=== PATIENT | female | born 1990 | race Caucasian/White ===

== ENCOUNTER → 2018-09-27 | Outpatient (CLI) | payer MEDICAID ==
--- NOTE | 2018-09-27 16:28 | Diagnostic Imaging Report ---
INDICATION: 18 weeks . TECHNIQUE: Multiple real-time grayscale images were obtained over the gravid uterus. COMPARISON: None. FINDINGS: Biometrical measurements are as follows: Biparietal 5.13 cm, age 21 weeks 4 days. Head circumference 19.80 cm, age 22 weeks 0 days. Abdominal circumference 16.30 cm, age 21 weeks 3 days. Femur length 3.68 cm, age 21 weeks 5 days. Sonographic estimate age: 21 weeks 5 days. Sonographic estimated date of delivery: 02/02/19. Estimated Weight: 434 gm (+/- 63 gm). LMP percentile: 18%. heart rate: 133 beats per minute. number: 1 of 1. There is a single living intrauterine in cephalic presentation. Amniotic fluid volume is normal. Placenta is posterior and not low. heart rate was 133 beats per minute. The kidneys, bladder, stomach, brain, four-chamber heart, three-vessel cord, spine, and cord insertion all appeared normal. measurements are symmetric and correspond to a composite gestational age of 20 weeks and 5 days with an estimated date of delivery of 02/02/2019. Adnexa were unremarkable. IMPRESSION: Single living intrauterine with an estimated gestational age of 21 weeks and 5 days +/-2 weeks. There are no anomalies seen. Dictated by: Dictated on workstation # [id number]
== END ==
LOC: RAD 12:45
PROVIDERS: ATTEND Obstetrics & Gynecology
DX: Z34.92 Encounter for supervision of normal pregnancy, unspecified, second trimester (principal); Z3A.21 21 weeks gestation of pregnancy
CPT/HCPCS: 76805

== ENCOUNTER 2019-02-11 07:48 | Inpatient (IN) | payer MEDICAID ==
[2019-02-11] VITALS (11 sets, daily range): BP systolic 102–179; BP diastolic 59–87
[~2019-02-11] VITALS: Ht 157.5 cm; Wt 77.1 kg
--- NOTE | 2019-02-11 07:50 | NUR ---
MILEY CHEN presented to unit via ambulation from ED, accompanied by s/o and mother, with c/o contractions since 399 this a.m. Pt. weighed, gowned, voided, and to bed. Pt. oriented to bed controls, call light, TV, heat, and A/C controls.
--- NOTE | 2019-02-11 08:10 | NUR ---
EFM and TOCO applied, vs taken. reports contractions since 399 this a.m. with "leaking" of fluid.
[2019-02-11 08:48] LABS: BILIRUBIN,URINE NEGATIVE (NEGATIVE); CLARITY,URINE SLIGHTLY CLOUDY; COLOR,URINE YELLOW; GLUCOSE, URINE (UA) NEGATIVE (NEGATIVE); KETONES,URINE NEGATIVE (NEGATIVE); LEUKOCYTE ESTERASE ,URINE 2+ (NEGATIVE); NITRITE,URINE NEGATIVE (NEGATIVE); PH,URINE 8 (5-9); PROTEIN,URINE NEGATIVE (NEGATIVE); UROBILINOGEN,URINE NORMAL (NORMAL)
[2019-02-11 09:00] LABS: BACTERIA,URINE MODERATE /HPF
--- NOTE | 2019-02-11 11:27 | NUR ---
#20IV x2 attempts by JENNIFER Lujan to Rt.hand. site patent. admission labs collected from site.
[2019-02-11] MEDS ORDERED: D5 LR IV SOLUTION 1,000 ML IV SCH (11:36)
[2019-02-11] MEDS ORDERED: D5 LR IV SOLUTION 1,000 ML IV ONE (11:38)
[2019-02-11 11:45] LABS: BASOPHILS # (AUTO) 0.1 10^3/uL (0.0-0.1); BASOPHILS % (AUTO) 0 % (0-10); EOSINOPHILS # (AUTO) 0.1 10^3/uL (0.0-0.3); EOSINOPHILS % (AUTO) 1 % (0-10); HEMATOCRIT 43 % (35-52); HEMOGLOBIN 14.4 G/DL (11.5-16.0); LYMPHOCYTES # (AUTO) 3.6 X 10^3 (1.0-4.0); LYMPHOCYTES % (AUTO) 21 % (12-44); MEAN CORPUSCULAR HEMOGLOBIN 30 PG (25-34); MEAN CORPUSCULAR HGB CONC 34 G/DL (32-36); MEAN CORPUSCULAR VOLUME 88 FL (80-99); MEAN PLATELET VOLUME 11.5 FL (7.4-10.4); MONOCYTES % (AUTO) 6 % (0-12); NEUTROPHILS # (AUTO) 12.7 X 10^3 (1.8-7.8); NEUTROPHILS % (AUTO) 73 % (42-75); PLATELET COUNT 190 10^3/uL (130-400); RED CELL DISTRIBUTION WIDTH 13.8 % (10.0-14.5); WHITE BLOOD COUNT 17.5 10^3/uL (4.3-11.0)
--- NOTE | 2019-02-11 11:56 | NUR ---
called. update given on status. new order received for IV pain medication.
[2019-02-11] MEDS ORDERED: HYDROmorphone 2 MG/ML VIAL (DILAUDID) IV ONE (12:15)
[2019-02-11 12:17] LABS: BAND NEUTROPHILS 0 %; BASOPHILS % (MANUAL) 0 %; EOSINOPHILS % (MANUAL) 0 %; LYMPHOCYTES % (MANUAL) 18 %; MONOCYTES % (MANUAL) 7 %; NEUTROPHILS % (MANUAL) 75 %; RBC MORPH NORMAL
[2019-02-11] MEDS ORDERED: ONDANSETRON 4 MG/2 ML (SDV) Z0FRAN ONE (12:36)
[2019-02-11] MEDS ORDERED: ONDANSETRON 4 MG/2 ML (SDV) Z0FRAN IVP PRN (12:45)
--- OUTSIDE RECORDS SUMMARY | 2019-02-11 13:31 | XMS REPORT | Continuity of Care Document ---
Author Organization Unknown Address Unknown Allergies There is no data. Medications There is no data. Problems There is no data. Procedures There is no data. Results There is no data. Encounters ACCT No. Visit Date/Time Discharge Status Pt. Type Provider Facility Loc./Unit Complaint [id number] 01/09/2019 13:30:00 01/09/2019 23:59:59 CLS Outpatient [facility]
--- NOTE | 2019-02-11 14:25 | NUR ---
NARGIS De Dios was called r/t pt's request for epidural placement. no answer on cell phone. message left.
[2019-02-11] MEDS ORDERED: SUFENTA 0.6MCG/ML BUPIVA 0.125 0 ML ONE (14:27)
[2019-02-11] MEDS ORDERED: fentaNYL INJECTION 100 MCG/2 ML AMP ONE (14:55)
--- NOTE | 2019-02-11 15:00 | NUR ---
was called by Nursing house mover supervisor for spinal placement. here on OB. in room, at bedside. pt c/o urge to have Juana STOCKTON per . Addendum: 02/11/19 at 1920 by VONDA SWAIN RN RN to prepare for .
[2019-02-11] MEDS ORDERED: LIDOCAINE/EPI 2% 1:200,00 (XYLOCAINE) 10 ML VIAL ONE (15:02)
[2019-02-11] MEDS ORDERED: OXYTOCIN/NORMAL SALINE 500 ML IV ONE (15:02)
[2019-02-11] MEDS: OXYTOCIN/NORMAL SALINE 500 ML IV SCH ×2 (15:16→15:49)
--- NOTE | 2019-02-11 15:22 | Progress Note-Standard ---
Standard Progress Note Progress Notes/Assess & Plan Date Seen by a Provider: February 11, 2019 Time Seen by a Provider: 15:05 Progress/Assessment & Plan Anesthesia Note Called to L&D for a labor epidural. She quickly progressed from a 5 to 9 cm dilation. Gricel Hamlin RN asked Dr Medina if we could proceed with a spinal narcotic injection which he agreed to. Pt was in agreement with the plan. When I was ready to start the procedure, the patient stated she needed to have a bowel movement. Dr Medina was in the room and checked the patient and stated she was complete, so no procedure for labor pain management was completed. We will be available if needed. FABIAN NAIR DO February 11, 2019 15:22
--- NOTE | 2019-02-11 15:29 | OB Labor & Delivery Record ---
L&D History Date of Service Date of Service: February 11, 2019 History Expected Date of Delivery: February 08, 2019 Gestational Age in Weeks: 40 Hx : 3 Hx Para: 2 Complications Events: Routine care Operative Indications (Cesarea: N/A-Vaginal Delivery Intrapartal Events: None L&D Stage1 Stage One Onset of Labor - Date: February 11, 2019 Monitors and Tracing Monitor Mode: External Heart Rate: 130 Monitor Decelerations: None Operations Vocational Instructor Variability: Average (6-10) Short Term Variability: Present Presentation: Vertex Rupture of Membranes Spontaneous Ruture of Membrane: No Amniotic Membrane Rupture Time: 15:15 Amniotic Membrane Fluid Desc.: Clear Vaginal Bleeding Description: Normal Show Progress/Notes AROM performed while in 2nd stage and patient complete and pushing L&D Stage2 Stage Two Stage II Date: February 11, 2019 Monitors and Tracing Monitor Mode: External Heart Rate: 130 Monitor Accelerations: Uniform Monitor Decelerations: None Care Home Variability: Average (6-10) Short Term Variability: Present Position: Right Occiput Anterior Presentation: Vertex Cord Descript/Complications Cord Vessel Description: 3 Vessels Complications delayed clamping at patient request Delivery Type Delivery Method: Spontaneous Vaginal Anterior Shoulder: Right Episiotomy/Perineal Laceration Laceraction(s)/Extensions: No Condition of Delivery 1 minute Comment: 9 5 minute Comment: 9 Notes Live female infant weight pending Condition of Condition of Infant: Living Exam: No Observed Abnormalities Resuscitation Resuscitation: N/A - Spontaneous Resp L&D Stage3 Pictocin Pitocin Administration Comment: 30 mu wide open at delivery of placenta Placenta Delivery Placenta Delivery: Spontaneous Delivery Summary Summary Estimated blood loss (mL): 250 Attending at delivery: Nilam Avina DO Condition of Delivery Examined: Cervix Examined, Uterus Explored Post Hemorrhage: No Condition of Mother stable Condition of (s) stable NILAM AVINA DO February 11, 2019 3:29 pm
--- NOTE | 2019-02-11 15:31 | History & Physical-OB ---
OB - Chief Complaint & HPI Date/Time Date of Admission: Date of Admission: February 11, 2019 at 11:16 am Date seen by a Provider: February 11, 2019 Time Seen by a Provider: 15:00 Chief Complaint/History OB-Reason for Admission/Chief: Onset of Labor Hx : 3 Hx Para: 2 Expected Date of Delivery: February 08, 2019 Gestational Age in Weeks: 40 Gestational Age in Days: 3 Admission Nurse Assessment Rev: Yes Allergies and Home Medications Allergies Coded Allergies: amoxicillin (Verified Allergy, Unknown, 02/11/19) Patient Home Medication List Home Medication List Reviewed: Yes OB - History Hx of Present Care: Yes Ultrasounds: Normal mid trimester US Obstetrical Complications: None Medical Complications: None Obstetrical History Hx : 3 Hx Para: 2 Patient Past Medical History n/a Social History/Family History Recent Infectious Disease Expo: No OB - Admission Exam Physical Exam HEENT: NCAT Heart: Rhythm Normal Lungs: Clear Abdomen: Gravid Extremities: Normal Reflexes: Normal Cervical Dilatation: 5cm Effacement: 75% Station: -1 Membranes: Intact Heart Rate: 130's Accelerations: Accelerations Present Decelerations: No Decelerations Short Term Variability: Present Group Home Variability: Average (6-25) Contractions on Admission: < 5 Minutes Apart Intensity: Firm Labs Laboratory Tests Test 02/11/19 08:40 02/11/19 11:25 Range/Units Urine Color YELLOW Urine Clarity SLIGHTLY CLOUDY Urine pH 8 5-9 Urine Specific [place] 1.010 L 1.016-1.022 Urine Protein NEGATIVE NEGATIVE Urine Glucose (UA) NEGATIVE NEGATIVE Urine Ketones NEGATIVE NEGATIVE Urine Nitrite NEGATIVE NEGATIVE Urine Bilirubin NEGATIVE NEGATIVE Urine Urobilinogen NORMAL NORMAL MG/DL Urine Leukocyte Esterase 2+ H NEGATIVE Urine RBC (Auto) NEGATIVE NEGATIVE Urine RBC NONE /HPF Urine WBC 10-25 H /HPF Urine Squamous Epithelial Cells 5-10 /HPF Urine Crystals NONE /LPF Urine Bacteria MODERATE H /HPF Urine Casts NONE /LPF Urine Mucus NEGATIVE /LPF Urine Culture Indicated YES White Blood Count 17.5 H 4.3-11.0 10^3/uL Red Blood Count 4.82 4.35-5.85 10^6/uL Hemoglobin 14.4 11.5-16.0 G/DL Hematocrit 43 35-52 % Mean Corpuscular Volume 88 80-99 FL Mean Corpuscular Hemoglobin 30 25-34 PG Mean Corpuscular Hemoglobin Concent 34 32-36 G/DL Red Cell Distribution Width 13.8 10.0-14.5 % Platelet Count 190 130-400 10^3/uL Mean Platelet Volume 11.5 H 7.4-10.4 FL Neutrophils (%) (Auto) 73 42-75 % Lymphocytes (%) (Auto) 21 12-44 % Monocytes (%) (Auto) 6 0-12 % Eosinophils (%) (Auto) 1 0-10 % Basophils (%) (Auto) 0 0-10 % Neutrophils # (Auto) 12.7 H 1.8-7.8 X 10^3 Lymphocytes # (Auto) 3.6 1.0-4.0 X 10^3 Monocytes # (Auto) 1.0 0.0-1.0 X 10^3 Eosinophils # (Auto) 0.1 0.0-0.3 10^3/uL Basophils # (Auto) 0.1 0.0-0.1 10^3/uL Neutrophils % (Manual) 75 % Lymphocytes % (Manual) 18 % Monocytes % (Manual) 7 % Eosinophils % (Manual) 0 % Basophils % (Manual) 0 % Band Neutrophils 0 % Blood Morphology Comment NORMAL OB - Assessment/Plan/Diagnosis Assessment Assessment: active labor Admission Dx 28 yo @ 40 weeks Post dates Active labor GBS neg Admission Status: Inpatient Order (span 2 midnights) Reason for Inpatient Admission: Active labor at term Plan Plan: Expectant Management NILAM AVINA DO February 11, 2019 3:31 pm
--- NOTE | 2019-02-11 15:33 | Discharge Inst-Women's Service ---
Discharge Inst-Women's Serv Depart Medication/Instructions New, Converted or Re-Newed RX: RX on Chart Consults/Follow Up Additional Follow Up: Yes Orders/Referrals Dr. Martin in 6 weeks Activity Activity: Activity as Tolerated Driving Instructions: No Driving for 1 Week NO SMOKING: NO SMOKING Nothing Inside Vagina: No Douching, No [place], No Tampons Diet Discharge Diet: No Restrictions Symptoms to Report to : Bleeding Excessive, Pain Increased, Fever Over 101 Degrees F, Vaginal Bleeding Increase, Questions/Concerns For Any Problems or Questions: Contact Your Physician NILAM AVINA DO February 11, 2019 3:33 pm
[2019-02-11] MEDS ORDERED: FERR325T18 PO (15:34)
[2019-02-11] MEDS ORDERED: IBUP-1773 PO (15:34)
[2019-02-11] MEDS ORDERED: DOCU-143 PO (15:34)
[2019-02-11] MEDS ORDERED: Benzocaine/Menthol TP (15:34)
[2019-02-11] MEDS ORDERED: HYDR-4226 PO (15:34)
[2019-02-11] MEDS ORDERED: BENZOCAINE/MENTHOL (DERMOPLAST) 56 ML CAN TP PRN (15:45)
[2019-02-11] MEDS ORDERED: MEASLES,MUMPS,RUBELLA 1 EA INJ SQ ONE (15:45)
[2019-02-11] MEDS ORDERED: HYDROcodone/APAP 5 MG/325 MG (LORTAB) TAB PO PRN (15:45)
[2019-02-11] MEDS ORDERED: DIBUCAINE (NUPERCAINAL) 1% OINT 30 GM TOP PRN (15:45)
[2019-02-11] MEDS ORDERED: WITCH HAZEL(TUCKS) 40 EA JAR TOP PRN (15:45)
[2019-02-11] MEDS ORDERED: TETANUS,DIPTH,PERTUSS P/F (BOOSTRIX) 0.5 ML VIAL IM ONE (15:45)
--- NOTE | 2019-02-11 18:50 | NUR ---
assisted up to BR. +void. tayo-care offered. v-pad and panties in place.
--- NOTE | 2019-02-11 18:55 | NUR ---
pt ambulated to room 310 with this RN and family @ side. familiarized with room. call light within reach.
--- NOTE | 2019-02-11 19:20 | NUR ---
report given to net shift.
[2019-02-11] MEDS: IBUPROFEN 800 MG (MOTRIN) TAB PO SCH (20:58)
--- NOTE | 2019-02-11 21:00 | NUR ---
Pt just finished . assessment completed. pt denies any needs or concerns at this time.
[2019-02-11] MEDS: DOCUSATE SODIUM 100 MG (COLACE) CAP PO SCH (21:42)
[2019-02-11] MEDS ORDERED: CATHETER FLUSH 10 ML SYR IV SCH (22:00)
[2019-02-12 01:30] VITALS: BP 111/75
[2019-02-12] MEDS: IBUPROFEN 800 MG (MOTRIN) TAB PO SCH ×3 (03:25→11:35)
[2019-02-12 04:31] VITALS: BP 121/84
[2019-02-12 06:28] LABS: BASOPHILS % (AUTO) 0 % (0-10); EOSINOPHILS # (AUTO) 0.1 10^3/uL (0.0-0.3); EOSINOPHILS % (AUTO) 1 % (0-10); HEMATOCRIT 38 % (35-52); HEMOGLOBIN 12.4 G/DL (11.5-16.0); LYMPHOCYTES # (AUTO) 3.8 X 10^3 (1.0-4.0); LYMPHOCYTES % (AUTO) 20 % (12-44); MEAN CORPUSCULAR HEMOGLOBIN 29 PG (25-34); MEAN CORPUSCULAR HGB CONC 33 G/DL (32-36); MEAN CORPUSCULAR VOLUME 90 FL (80-99); MEAN PLATELET VOLUME 10.9 FL (7.4-10.4); MONOCYTES # (AUTO) 1.4 X 10^3 (0.0-1.0); MONOCYTES % (AUTO) 7 % (0-12); NEUTROPHILS # (AUTO) 13.8 X 10^3 (1.8-7.8); NEUTROPHILS % (AUTO) 72 % (42-75); PLATELET COUNT 175 10^3/uL (130-400); RED CELL DISTRIBUTION WIDTH 13.6 % (10.0-14.5); WHITE BLOOD COUNT 19.2 10^3/uL (4.3-11.0)
[2019-02-12] MEDS ORDERED: PRENATAL VITAMIN 1 EA TAB PO SCH (07:00)
--- NOTE | 2019-02-12 07:28 | Postpartum Progress Note ---
Note Note Day # 1 Subjective: Patient is without complaints. Ambulating, voiding. Tolerating a regular diet without nausea or vomiting. Normal lochia. Pain is well controlled with oral pain medications. Objective: Physical Exam: General - Alert and oriented, no apparent distress Abdomen - Soft, appropriately tender to palpation, non-distended, fundus firm at umbilicus Extremities - no edema, negative Jak's bilaterally Assessment: PPD 1 NVD Plan: Routine care. Encourage breast feeding. Encourage ambulation. Ferrous sulfate supplementation. Plan for discharge tomorrow Vitals - Labs Vital Signs - I&O Vital Signs Date Time Temp Pulse Resp B/P (MAP) Pulse Ox O2 Delivery O2 Flow Rate FiO2 02/12/19 04:31 98.6 80 18 121/84 (96) Room Air 02/12/19 01:30 98.6 79 18 111/75 (87) Room Air 02/11/19 21:30 98.3 83 18 137/87 (104) Room Air 02/11/19 17:35 77 18 110/70 (83) Room Air 02/11/19 17:20 77 18 112/78 (89) Room Air 02/11/19 17:05 74 18 113/72 (86) Room Air 02/11/19 16:50 81 18 102/63 (76) Room Air 02/11/19 16:30 77 18 116/62 (80) Room Air 02/11/19 16:25 86 18 132/59 (83) Room Air 02/11/19 15:25 96.2 108 18 179/74 (109) Room Air 02/11/19 12:35 97.4 85 18 124/81 (95) Room Air 02/11/19 08:45 75 18 123/84 (97) Room Air 02/11/19 08:10 97.3 88 18 124/82 (96) Room Air I & O 02/12/19 07:00 Intake Total 1375 ml Balance 1375 ml Labs Laboratory Tests 02/11/19 08:40: Urine Color YELLOW, Urine Clarity SLIGHTLY CLOUDY, Urine pH 8, Urine Specific [place] 1.010L, Urine Protein NEGATIVE, Urine Glucose (UA) NEGATIVE, Urine Ketones NEGATIVE, Urine Nitrite NEGATIVE, Urine Bilirubin NEGATIVE, Urine Urobilinogen NORMAL, Urine Leukocyte Esterase 2+H, Urine RBC (Auto) NEGATIVE, Urine RBC NONE, Urine WBC 10-25H, Urine Squamous Epithelial Cells 5-10, Urine Crystals NONE, Urine Bacteria MODERATEH, Urine Casts NONE, Urine Mucus NEGATIVE , Urine Culture Indicated YES 02/11/19 11:25: White Blood Count 17.5H, Red Blood Count 4.82, Hemoglobin 14.4, Hematocrit 43, Mean Corpuscular Volume 88, Mean Corpuscular Hemoglobin 30, Mean Corpuscular Hemoglobin Concent 34, Red Cell Distribution Width 13.8, Platelet Count 190, Mean Platelet Volume 11.5H, Neutrophils (%) (Auto) 73, Lymphocytes (%) (Auto) 21 , Monocytes (%) (Auto) 6, Eosinophils (%) (Auto) 1, Basophils (%) (Auto) 0, Neutrophils # (Auto) 12.7H, Lymphocytes # (Auto) 3.6, Monocytes # (Auto) 1.0, Eosinophils # (Auto) 0.1, Basophils # (Auto) 0.1, Neutrophils % (Manual) 75, Lymphocytes % (Manual) 18, Monocytes % (Manual) 7, Eosinophils % (Manual) 0, Basophils % (Manual) 0, Band Neutrophils 0, Blood Morphology Comment NORMAL 02/12/19 06:15: White Blood Count 19.2H, Red Blood Count 4.23L, Hemoglobin 12.4, Hematocrit 38, Mean Corpuscular Volume 90, Mean Corpuscular Hemoglobin 29, Mean Corpuscular Hemoglobin Concent 33, Red Cell Distribution Width 13.6, Platelet Count 175, Mean Platelet Volume 10.9H, Neutrophils (%) (Auto) 72, Lymphocytes (%) (Auto) 20 , Monocytes (%) (Auto) 7, Eosinophils (%) (Auto) 1, Basophils (%) (Auto) 0, Neutrophils # (Auto) 13.8H, Lymphocytes # (Auto) 3.8, Monocytes # (Auto) 1.4H, Eosinophils # (Auto) 0.1, Basophils # (Auto) 0.0 NILAM AVINA DO February 12, 2019 07:28
[2019-02-12] MEDS: DOCUSATE SODIUM 100 MG (COLACE) CAP PO SCH (08:22)
[2019-02-12 08:25] VITALS: BP 133/73
--- NOTE | 2019-02-12 08:30 | NUR ---
THIS RN TO PT'S BEDSIDE, SELF INTRODUCED. PT SITTING UP IN BED, INFANT AT THE BREAST, SLEEPING. VS OBTAINED. MEDS GIVEN PO; SEE EMAR FOR FURTHER. PT RATING PAIN 6/10, C/O BEING CRAMPING. INITIAL SHIFT ASSESSMENT COMPLETED; SEE INTERVENTION FOR FURTHER. S/O AT THE BEDSIDE. POC DISCUSSED, PT VERBALIZES UNDERSTANDING AND DENIES ANY NEEDS AT THIS TIME. CALL LIGHT WITHIN REACH.
--- NOTE | 2019-02-12 08:58 | NUR ---
PT AMBULATES SELF OFF UNIT.
[2019-02-12] MEDS ORDERED: FERROUS SULF 325 MG (IRON) TAB PO SCH (09:00)
--- NOTE | 2019-02-12 09:15 | NUR ---
PT AMBULATES BACK TO UNIT.
--- NOTE | 2019-02-12 11:35 | NUR ---
PT UP IN ROOM, TAKING PICTURES OF INFANT. ROUTINE MOTRIN GIVEN PO; SEE EMAR FOR FURTHER. S/O AT THE BEDSIDE. NO FURTHER NEEDS VOICED. PT PREPPING TO BREASTFEED INFANT.
[2019-02-12 13:55] VITALS: BP 135/83
--- NOTE | 2019-02-12 13:55 | NUR ---
PT IN BED, HOLDING . S/O AT THE BEDSIDE. VS OBTAINED. NO NEEDS VOICED.
--- NOTE | 2019-02-12 15:30 | NUR ---
PT AMBULATING BACK ONTO THE UNIT ACC BY OTHER DAUGHTER.
--- NOTE | 2019-02-12 16:10 | NUR ---
PT INFANT. Brenna KELSEY, NURSERY RN AT PT'S BEDSIDE, DISCUSSING CARE OF INFANT AND DISCHARGE. DR VAINA MADE AWARE. DISCHARGE ORDER RECEIVED.
--- NOTE | 2019-02-12 16:54 | NUR ---
DISCHARGE PAPERS PROVIDED AND REVIEWED WITH PT, PT VERBALIZES UNDERSTANDING AND DENIES ANY QUESTIONS OR NEEDS AT THIS TIME. PAPER SIGNED. FOLLOW UP APPOINTMENT CARD AND RX'S PROVIDED AND PLACED INTO DISCHARGE FOLDER. S/O AT THE BEDSIDE.
--- NOTE | 2019-02-12 17:20 | NUR ---
PT DISCHARGED FROM -310 TO PERSONAL AUTO VIA AMBULATORY IN STABLE CONDITION ACC BY S/O AND Brenna KELSEY RN.
--- NOTE | 2019-02-13 15:23 | Physician Query-Final Dx ---
CAMI MARTIN 02/13/19 1523: Final Diagnosis Give Final Diagnosis Please give Final Diagnosis NILAM AVINA DO 02/13/19 2125: Final Diagnosis Give Final Diagnosis ppd 1 nvd CAMI MARTIN February 13, 2019 15:23 NILAM AVINA DO February 13, 2019 21:25
== END 2019-02-12 17:20 | disposition home or self-care (01) | DRG 807 ==
LOC: WSo 07:48 → LDRP 07:49 → WSo 11:16 → LDRP 12:38
PROVIDERS: ADMIT Obstetrics & Gynecology; ATTEND Obstetrics & Gynecology
PROC: 10E0XZZ Delivery of Products of Conception, External Approach (ICD-10-PCS; principal; 2019-02-11)
DX: O48.0 Post-term pregnancy (principal); O99.344 Other mental disorders complicating childbirth; F32.9 Major depressive disorder, single episode, unspecified; O99.334 Smoking (tobacco) complicating childbirth; F17.210 Nicotine dependence, cigarettes, uncomplicated; Z88.1 Allergy status to other antibiotic agents; Z3A.40 40 weeks gestation of pregnancy; Z37.0 Single live birth
CPT/HCPCS: 36415; 81000; 85007; 85025; 85027; 86850; 86900; 86901; 87088; 99212

== ENCOUNTER 2019-05-21 11:36 | Emergency (ER) | payer MEDICAID ==
[~2019-05-21] VITALS: Ht 157.5 cm; Wt 68.0 kg
[~2019-05-21 11:36] MED LIST: Benzocaine/Menthol TP; DOCU-143 PO; FERR325T18 PO; HYDR-4226 PO; IBUP-1773 PO
[2019-05-21] MEDS ORDERED: HYDR-3455 PO (11:54)
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
[2019-05-21 12:13] VITALS: BP 128/88
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
== END 2019-05-21 12:02 | disposition home or self-care (01) ==
LOC: EDUNIT# 11:36 → ER FS 11:37
DX: T23.011A Burn of unspecified degree of right thumb (nail), initial encounter (principal); T31.0 Burns involving less than 10% of body surface; J45.909 Unspecified asthma, uncomplicated; Z88.0 Allergy status to penicillin; X10.2XXA Contact with fats and cooking oils, initial encounter
CPT/HCPCS: 99282

== ENCOUNTER 2019-06-24 13:01 | Emergency (ER) | payer MEDICAID ==
[~2019-06-24] VITALS: Ht 157.5 cm; Wt 66.1 kg
[~2019-06-24 13:01] MED LIST changes: +HYDR-3455 PO
[2019-06-24 13:26] VITALS: BP 121/87
[2019-06-24] MEDS ORDERED: HYDR-4226 PO (13:28)
[2019-06-24] MEDS ORDERED: IBUP-1780 PO (13:28)
--- NOTE | 2019-06-24 13:37 | ED Lower Extremity ---
General Chief Complaint: Lower Extremity Stated Complaint: PT THINKS SHE BROKE A TOE ON RT FOOT Nursing Triage Note: Patient reports she tripped and fell down her steps, believes she may have broken her right fourth toe. Nursing Sepsis Screen: No Definite Risk History of Present Illness Date Seen by Provider: Jun 24, 2019 Time Seen by Provider: 13:10 Initial Comments Patient is a 28-year-old female who comes to the emergency department after injuring her right foot. She was walking down some steps and lost her balance. She stumbled and stubbed the right foot. Specifically, she complains of pain about the right fourth digit. She has been able to weight-bear. Incident happened just prior to presentation. No other injuries. Did not strike her head or have loss of consciousness. Onset: just prior to arrival Allergies and Home Medications Allergies Coded Allergies: amoxicillin (Verified Allergy, Unknown, 02/11/19) Home Medications Docusate Sodium 100 Mg Capsule, 100 MG PO BID Prescribed by: NILAM AVINA on 02/11/19 1534 Ferrous Sulfate 325 Mg Tablet, 325 MG PO DAILY Prescribed by: NILAM AVINA on 02/11/19 1534 Hydrocodone/Acetaminophen 1 Each Tablet, 1 TAB PO Q4-6HR Prescribed by: NILAM AVINA on 02/11/19 1534 Hydrocodone/Acetaminophen 1 Each Tablet, 1-2 EACH PO Q6H PRN for PAIN-MODERATE Prescribed by: JEREMY TIRADO MD on 05/21/19 1154 Hydrocodone/Acetaminophen 1 Each Tablet, 1 TAB PO Q6H Prescribed by: MARYCRUZ CASTRO on 06/24/19 1328 Ibuprofen 600 Mg Tablet, 600 MG PO Q6H Prescribed by: NILAM AVINA on 02/11/19 1534 Ibuprofen 800 Mg Tablet, 800 MG PO Q8H PRN for PAIN-MILD Prescribed by: MARYCRUZ CASTRO on 06/24/19 1328 [Benzocaine/Menthol] 56 ML AEROSOL, 56 ML TP UD PRN for PAIN- SEE INSTRUCTIONS EXTERNAL USE ONLY Prescribed by: NILAM AVINA on 02/11/19 153 Patient Home Medication List Home Medication List Reviewed: Yes Review of Systems Constitutional: no symptoms reported EENTM: no symptoms reported Respiratory: no symptoms reported Skin: no symptoms reported Past Wnwkknn-Sgwkyr-Tipwqe Hx Patient Social History Alcohol Use: Denies Use Recreational Drug Use: No Smoking Status: Current Everyday Smoker Type Used: Cigarettes 2nd Hand Smoke Exposure: No Recent Foreign Travel: No Contact w/Someone Who Travel: No Recent Infectious Disease Expo: No Recent Hopitalizations: No Physical Abuse: No Sexual Abuse: No Mistreated: No Fear: No Immunizations Up To Date Tetanus Booster (TDap): Unknown Seasonal Allergies Seasonal Allergies: No Past Medical History Surgeries: Yes Tubal Ligation Respiratory: Yes Asthma Cardiac: No Neurological: No NURSE DISCHARGE History: Tubal Ligation Genitourinary: No Gastrointestinal: No Musculoskeletal: No Endocrine: No HEENT: No Cancer: No Psychosocial: No Integumentary: No Blood Disorders: No Adverse Reaction/Blood Tranf: No Family Medical History Patient reports no known family medical history. Physical Exam Vital Signs Vital Signs - First Documented 06/24/19 13:11 Temp 37.1 Pulse 88 Resp 18 B/P (MAP) 121/87 (98) Pulse Ox 98 O2 Delivery Room Air Capillary Refill : Less Than 3 Seconds Height, Weight, BMI Height: 5'2.00" Weight: 150lbs. 0.2oz. [id number]; 26.00 BMI Method:Stated General Appearance: WD/WN, no apparent distress Neck: non-tender, full range of motion Respiratory: normal breath sounds Feet: right foot other (mild erythema, ecchymosis, present about the right fourth toe. Capillary refill is less than 2 seconds. No acute deformity is present. Sensation to light touch is intact.) Neurologic/Psychiatric: alert, oriented x 3 Skin: normal color Progress/Results/Core Measures Results/Orders My Orders Orders - MARYCRUZ CASTRO DO Foot 3 View Right (06/24/19 13:06) Vital Signs/I&O 06/24/19 06/24/19 13:11 13:26 Temp 37.1 37.1 Pulse 88 88 Resp 18 18 B/P (MAP) 121/87 (98) 121/87 (98) Pulse Ox 98 98 O2 Delivery Room Air Blood Pressure Mean: 98 Progress Progress Note : Time: 13:36 Progress Note Patient is seen and examined for minor toe injury. X-ray was revealing for fracture of the fourth toe. The bony fragments were in good alignment. In the ER, the patient's toe is marleny taped and she is given a postop shoe. She is discharged home with medications for pain control and recommended to follow-up with her primary care physician as needed. Opiate precautions are discussed. Patient has tolerated [place] in the past. Departure Impression Primary Impression: Fracture of toe Disposition: 01 HOME, SELF-CARE Condition: Improved Departure-Patient Inst. Patient Instructions: Toe Fracture (DC) Scripts Hydrocodone/Acetaminophen ([place] 5-325 Tablet) 1 Each Tablet 1 TAB PO Q6H for Pain MDD 10 TABS for 7 Days, #15 TAB Prov: MARYCRUZ CASTRO DO 06/24/19 Ibuprofen (Ibuprofen) 800 Mg Tablet 800 MG PO Q8H PRN for PAIN-MILD, #21 TAB Prov: MARYCRUZ CASTRO DO 06/24/19 MARYCRUZ CASTRO DO Jun 24, 2019 13:37
--- NOTE | 2019-06-24 13:57 | Diagnostic Imaging Report ---
INDICATION: Tripped on steps at home with injury to the toe. TECHNIQUE: 3 views of the right foot CORRELATION STUDY: None FINDINGS: There is relatively nondisplaced, slightly obliquely oriented joint fracture at the proximal aspect of the proximal fourth phalanx. The alignment is relatively anatomic. This appears to come in close proximity to but does not definitively go through the articular surface. Remaining osseous structures otherwise intact. Some asymmetric edema suggested at the base of the fourth toe. IMPRESSION: 1. Relatively nondisplaced fracture involving the proximal phalanx of the fourth digit. Dictated by: Dictated on workstation # [id number]
== END 2019-06-24 13:34 | disposition home or self-care (01) ==
LOC: EDUNIT# 13:01 → ER FS 13:03
DX: S92.501A Displaced unspecified fracture of right lesser toe(s), initial encounter for closed fracture (principal); J45.909 Unspecified asthma, uncomplicated; F17.210 Nicotine dependence, cigarettes, uncomplicated; Z98.51 Tubal ligation status; Z88.0 Allergy status to penicillin; W10.9XXA Fall (on) (from) unspecified stairs and steps, initial encounter
CPT/HCPCS: 73630

== ENCOUNTER 2019-10-30 16:05 | Emergency (ER) | payer MEDICAID ==
[~2019-10-30] VITALS: Ht 157 cm; Wt 70.4 kg
[~2019-10-30 16:05] MED LIST changes: +IBUP-1780 PO
--- NOTE | 2019-10-30 16:21 | ED Back Pain ---
General Chief Complaint: Back Problems Stated Complaint: BACK PAIN Source of Information: Patient Exam Limitations: No Limitations History of Present Illness Date Seen by Provider: Oct 30, 2019 Time Seen by Provider: 16:05 Initial Comments The patient is a pleasant 28-year-old female who presents for evaluation of low back pain. She states that her 3-year-old child jumped onto her back yesterday morning causing an injury. She states she is still able to pick things up but is quite sore in the lower back and wanted to make sure there was not a serious injury. She denies any difficulty urinating or defecating or any focal weakness or numbness. She is alert and oriented 4, calm, and appears to be in no distress at this time. Location: Lumbar Spine Timing/Duration: 1 Day Severity: Moderate Method of Injury: Direct Blow Modifying Factors: Improves With Movement (makes it worse) Associated Symptoms: denies symptoms Allergies and Home Medications Allergies Coded Allergies: amoxicillin (Verified Allergy, Unknown, 02/11/19) Home Medications Docusate Sodium 100 Mg Capsule, 100 MG PO BID Prescribed by: NILAM AVINA on 02/11/19 1534 Ferrous Sulfate 325 Mg Tablet, 325 MG PO DAILY Prescribed by: NILAM AVINA on 02/11/19 1534 Hydrocodone/Acetaminophen 1 Each Tablet, 1 TAB PO Q4-6HR Prescribed by: NILAM AVINA on 02/11/19 1534 Hydrocodone/Acetaminophen 1 Each Tablet, 1-2 EACH PO Q6H PRN for PAIN-MODERATE Prescribed by: JEREMY TIRADO MD on 05/21/19 1154 Hydrocodone/Acetaminophen 1 Each Tablet, 1 TAB PO Q6H Prescribed by: MARYCRUZ CASTRO on 06/24/19 1328 Ibuprofen 600 Mg Tablet, 600 MG PO Q6H Prescribed by: NILAM AVINA on 02/11/19 1534 Ibuprofen 800 Mg Tablet, 800 MG PO Q8H PRN for PAIN-MILD Prescribed by: MARYCRUZ CASTRO on 06/24/19 1328 [Benzocaine/Menthol] 56 ML AEROSOL, 56 ML TP UD PRN for PAIN- SEE INSTRUCTIONS EXTERNAL USE ONLY Prescribed by: NILAM AVINA on 02/11/19 1534 Patient Home Medication List Home Medication List Reviewed: Yes Review of Systems Constitutional: no symptoms reported EENTM: no symptoms reported Respiratory: no symptoms reported Cardiovascular: no symptoms reported Gastrointestinal: no symptoms reported Genitourinary: no symptoms reported Musculoskeletal: back pain (low) Skin: no symptoms reported Psychiatric/Neurological: No Symptoms Reported All Other Systems Reviewed Negative Unless Noted: Yes Past Sffqelg-Dgwmpb-Eifxom Hx Past Med/Social Hx: Reviewed Nursing Past Med/Soc Hx Patient Social History Alcohol Use: Denies Use Recreational Drug Use: No Smoking Status: Current Everyday Smoker Type Used: Cigarettes 2nd Hand Smoke Exposure: No Recent Foreign Travel: No Contact w/Someone Who Travel: No Recent Hopitalizations: No Physical Abuse: No Sexual Abuse: No Mistreated: No Fear: No Immunizations Up To Date Tetanus Booster (TDap): Unknown Seasonal Allergies Seasonal Allergies: No Past Medical History Surgeries: Yes Tubal Ligation Respiratory: Yes Asthma Cardiac: No Neurological: No MEDICAL PRACTITIONERS History: Tubal Ligation Genitourinary: No Gastrointestinal: No Musculoskeletal: No Endocrine: No HEENT: No Cancer: No Psychosocial: No Integumentary: No Blood Disorders: No Adverse Reaction/Blood Tranf: No Family Medical History Patient reports no known family medical history. Physical Exam Vital Signs Vital Signs - First Documented 10/30/19 16:15 Temp 36.2 Pulse 56 Resp 14 B/P (MAP) 142/98 (113) Pulse Ox 100 O2 Delivery Room Air Capillary Refill : Height, Weight, BMI Height: 5'2.00" Weight: 150lbs. 0.2oz. 68.515337ct; 26.00 BMI Method:Stated General Appearance: No Apparent Distress, WD/WN HEENT: PERRL/EOMI, Pharynx Normal Neck: Full Range of Motion, Normal Inspection, Non Tender Cardiovascular: Regular Rate, Rhythm, No Edema, No Murmur Respiratory: Chest Non Tender, Lungs Clear, Normal Breath Sounds, No Accessory Muscle Use, No Respiratory Distress Back: No CVA Tenderness, Vertebral Tenderness (L2-3) Extremity: Normal Capillary Refill, Normal Inspection, Normal Range of Motion, Non Tender Neurologic/Psychiatric: Alert, Oriented x3, No Motor/Sensory Deficits, Normal Mood/Affect, knitting machine fixer II-XII Norm as Tested Skin: Normal Color, Warm/Dry Progress/Results/Core Measures Results/Orders My Orders Orders - RENEE NEWBERRY DO Lumbar Spine 2 Or 3 View (10/30/19 16:14) Ibuprofen Tablet (Motrin Tablet) (10/30/19 16:30) Vital Signs/I&O 10/30/19 16:15 Temp 36.2 Pulse 56 Resp 14 B/P (MAP) 142/98 (113) Pulse Ox 100 O2 Delivery Room Air Departure Impression Primary Impression: Low back pain Disposition: HOME, SELF-CARE Condition: Stable Departure-Patient Inst. Decision time for Depature: 16:57 Referrals: SELF,TIAN PEREZ (PCP/Family) Primary Care Physician Patient Instructions: Low Back Pain (DC) Add. Discharge Instructions: Take ibuprofen and/or Tylenol at home for pain relief as needed. Apply heating pads as well. Discussed any additional medications with your electrical timing device calibrator prior to use. Return to the emergency Department immediately for new or worsening symptoms. RENEE NEWBERRY DO Oct 30, 2019 16:21
[2019-10-30] MEDS ORDERED: IBUPROFEN TABLET 200 MG TAB PO ONE (16:30)
[2019-10-30 17:15] VITALS: BP 138/87
--- NOTE | 2019-10-30 17:59 | Diagnostic Imaging Report ---
CLINICAL INDICATION: Patient with low back pain after 3-year-old jumped on her lower back. EXAM: X-ray of the lumbar spine, 3 views. COMPARISON: None. FINDINGS: There is no acute fracture or dislocation. The intervertebral disc heights are maintained. There are no significant degenerative changes. Sacroiliac joints show mild sclerosis. There are surgical clips in the pelvis seen. IMPRESSION: The lumbar spine shows no acute fracture or dislocation. There is no significant lumbar spine abnormality. Dictated by: Dictated on workstation # [id number]
== END 2019-10-30 17:12 | disposition home or self-care (01) ==
LOC: EDUNIT# 16:05 → ER FS 16:06
DX: M54.5 Low back pain (principal); J45.909 Unspecified asthma, uncomplicated; F17.210 Nicotine dependence, cigarettes, uncomplicated; Z88.0 Allergy status to penicillin; Z98.51 Tubal ligation status; W50.0XXA Accidental hit or strike by another person, initial encounter
CPT/HCPCS: 72100

== ENCOUNTER 2021-08-15 16:56 | Emergency (ER) | payer MEDICAID ==
[~2021-08-15] VITALS: Ht 157.4 cm; Wt 58.8 kg
[2021-08-15] MEDS ORDERED: CEPH500T PO (17:18)
[2021-08-15] MEDS ORDERED: ACHD5005 PO (17:18)
--- NOTE | 2021-08-15 17:18 | ED Integumentary General ---
General Chief Complaint: Skin/Wound Problems Stated Complaint: RT FOOT BURN History of Present Illness Date Seen by Provider: Aug 15, 2021 Time Seen by Provider: 17:12 Initial Comments Patient presenting to emergency department for evaluation of a chemical burn to her distal plantar foot that was sustained last night as she says she accidentally put [place] on it for an extended period of time and she did not realize it was present on her foot. Patient says that there is blistering at the base of her third toe and it hurts to put weight on it. She says that her tetanus is up-to-date. She denies fevers chills nausea vomiting or other systemic symptoms. She is in no acute distress with normal vital signs. Allergies and Home Medications Allergies Coded Allergies: amoxicillin (Verified Allergy, Unknown, 02/11/19) Patient Home Medication List Home Medication List Reviewed: Yes Docusate Sodium (Colace) 100 Mg Capsule, 100 MG PO BID Prescribed by: NILAM AVINA on 02/11/19 1534 Ferrous Sulfate (Ferrous Sulfate) 325 Mg Tablet, 325 MG PO DAILY Prescribed by: NILAM AVINA on 02/11/19 1534 Hydrocodone/Acetaminophen (Hydrocodone/Acetaminophen 5 MG/325 MG TAB) 1 Each Tablet, 1 TAB PO Q4-6HR Prescribed by: NILAM AVINA on 02/11/19 1534 Hydrocodone/Acetaminophen (Vicodin 5-300 mg Tablet) 1 Each Tablet, 1-2 EACH PO Q6H PRN for PAIN-MODERATE Prescribed by: JEREMY TIRADO MD on 05/21/19 1154 Hydrocodone/Acetaminophen (Hydrocodone/Acetaminophen 5 MG/325 MG TAB) 1 Each Tablet, 1 TAB PO Q6H Prescribed by: MARYCRUZ CASTRO on 06/24/19 1328 Ibuprofen (Ibuprofen) 600 Mg Tablet, 600 MG PO Q6H Prescribed by: NILAM AVINA on 02/11/19 1534 Ibuprofen (Ibuprofen) 800 Mg Tablet, 800 MG PO Q8H PRN for PAIN-MILD Prescribed by: MARYCRUZ CASTRO on 06/24/19 1328 [Benzocaine/Menthol] 56 ML AEROSOL, 56 ML TP UD PRN for PAIN- SEE INSTRUCTIONS Prescribed by: NILAM AVINA on 02/11/19 1534 Review of Systems Review of Systems Constitutional: no symptoms reported Musculoskeletal: no symptoms reported Skin: lesions Psychiatric/Neurological: No Symptoms Reported All Other Systems Reviewed Negative Unless Noted: Yes Past Hcqvuno-Nmfzad-Gzrnig Hx Patient Social History Tobacco Use?: Yes Tobacco type used: Cigarettes Smoking Status: Current Everyday Smoker Substance use?: No Alcohol Use?: No Pt feels they are or have been: No Immunizations Up To Date Tetanus Booster (TDap): Unknown First/Initial COVID19 Vaccinat: Not currently vaccinated Seasonal Allergies Seasonal Allergies: No Past Medical History Surgeries: Yes Tubal Ligation Respiratory: Yes Asthma Cardiac: No Neurological: No 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 Physical Exam Vital Signs Capillary Refill : General Appearance: WD/WN Extremities: normal range of motion, no pedal edema, normal capillary refill Neurologic/Psychiatric: no motor/sensory deficits Skin: warm/dry Skin Problem Location: other (Base of the plantar aspect of her third toe extending into her distal foot has an approximate 3 x 2 cm area of erythema with the distal blister noted but no hardening of the skin or purulence or induration noted. No warmth to palpation.) Progress/Results/Core Measures Results/Orders My Orders Orders - JAMIR HAMLIN DO Neomycin/Polymyxin/Pramox Crm (Neosporin (08/15/21 21:00) Progress Progress Note : Progress Note I told patient that it appears that she has a second-degree burn but no signs of secondary cellulitis at this time. She feels that she would benefit from antibiotics but I told her I would hold off unless she starts to show signs of infection which I explained to her. I told her for now I recommended Neosporin ointment and keeping the wound clean and dry. I told her to follow with her primary care provider within 2 to 3 days for recheck and I will give her information for the surgeon on-call as she may benefit from debridement and she could see if the general surgeon would follow her for burn care. Patient aware and agreeable with plan for discharge and verbalized understanding of the above instructions. Departure Impression Primary Impression: Second degree burn of right foot Qualified Codes: T25.221A - Burn of second degree of right foot, initial encounter Disposition: 01 HOME, SELF-CARE Condition: Stable Departure-Patient Inst. Referrals: TIAN TALAVERA MD (PCP/Family) Primary Care Physician Patient Instructions: Skin Souza (DC) Add. Discharge Instructions: Neosporin to foot. Ibuprofen and tylenol for pain. [place] for breakthrough pain. Start keflex if you start having signs of infection. All discharge instructions reviewed with patient and/or family. Voiced understanding. Scripts Cephalexin (Cephalexin) 500 Mg Tablet 500 MG PO QID for 5 Days, #20 TAB Prov: JAMIR HAMLIN DO 08/15/21 Hydrocodone/Acetaminophen (Hydrocodone-Acetamin 5-325 mg) 1 Each Tablet 1 TAB PO Q4H PRN for PAIN-MODERATE (5-7), #10 TAB Prov: JAMIR HAMLIN DO 08/15/21 JAMIR HAMLIN DO Aug 15, 2021 17:18
[2021-08-15 17:24] VITALS: BP 114/69
[2021-08-15] MEDS ORDERED: NEOSPORIN + PAIN RELIEF CREAM 15 GM TOP SCH (21:00)
== END 2021-08-15 17:22 | disposition home or self-care (01) ==
LOC: EDUNIT# 16:56 → ER FS 16:58
DX: T25.221A Burn of second degree of right foot, initial encounter (principal); J45.909 Unspecified asthma, uncomplicated; F17.210 Nicotine dependence, cigarettes, uncomplicated; Z77.098 Contact with and (suspected) exposure to other hazardous, chiefly nonmedicinal, chemicals

== ENCOUNTER 2021-08-25 07:26 | Emergency (ER) | payer MEDICAID ==
[~2021-08-25] VITALS: Ht 157 cm; Wt 60.0 kg
[~2021-08-25 07:26] MED LIST changes: +ACHD5005 PO; +CEPH500T PO
[2021-08-25 07:44] VITALS: BP 112/67
[2021-08-25] MEDS ORDERED: ACYC-112 PO (07:54)
[2021-08-25] MEDS ORDERED: SULF1TAB38 PO (07:54)
--- NOTE | 2021-08-25 07:54 | ED Integumentary General ---
General Chief Complaint: Skin/Wound Problems Stated Complaint: LT FINGER WOUND History of Present Illness Date Seen by Provider: Aug 25, 2021 Time Seen by Provider: 07:51 Initial Comments Patient presenting to the emergency department for evaluation of left ring finger pain that started 4 days ago as a burning sharp stabbing pain in her left finger and then the next day she said she had 13 blisters on her distal dorsal surface. She says that there has been increased erythema and there has been clearish nonpurulent drainage from the finger. She says that the pain radiates throughout her entire finger. There is some swelling but no proximal erythema rather all the erythema is at the distal surface. She denies systemic fevers chills nausea or vomiting. Patient says that she does not put her fingers in her mouth or in anyone else's mouth. She is in no acute distress with normal vital signs. Allergies and Home Medications Allergies Coded Allergies: amoxicillin (Verified Allergy, Unknown, 02/11/19) Patient Home Medication List Home Medication List Reviewed: Yes Acyclovir (Acyclovir) 800 Mg Tablet, 800 MG PO BID Prescribed by: JAMIR HAMLIN on 08/25/21 0754 Cephalexin (Cephalexin) 500 Mg Tablet, 500 MG PO QID Prescribed by: JAMIR HAMLIN on 08/15/21 1718 Docusate Sodium (Colace) 100 Mg Capsule, 100 MG PO BID Prescribed by: NILAM AVINA on 02/11/19 1534 Ferrous Sulfate (Ferrous Sulfate) 325 Mg Tablet, 325 MG PO DAILY Prescribed by: NILAM AVINA on 02/11/19 1534 Hydrocodone/Acetaminophen (Hydrocodone/Acetaminophen 5 MG/325 MG TAB) 1 Each Tablet, 1 TAB PO Q4-6HR Prescribed by: NILAM AVINA on 02/11/19 1534 Hydrocodone/Acetaminophen (Vicodin 5-300 mg Tablet) 1 Each Tablet, 1-2 EACH PO Q6H PRN for PAIN-MODERATE Prescribed by: JEREMY TIRADO MD on 05/21/19 1154 Hydrocodone/Acetaminophen (Hydrocodone/Acetaminophen 5 MG/325 MG TAB) 1 Each Tablet, 1 TAB PO Q6H Prescribed by: MARYCRUZ CASTRO on 06/24/19 1328 Hydrocodone/Acetaminophen (Hydrocodone-Acetamin 5-325 mg) 1 Each Tablet, 1 TAB PO Q4H PRN for PAIN-MODERATE (5-7) Prescribed by: JAMIR HAMLIN on 08/15/21 1718 Ibuprofen (Ibuprofen) 600 Mg Tablet, 600 MG PO Q6H Prescribed by: NILAM AVINA on 02/11/19 1534 Ibuprofen (Ibuprofen) 800 Mg Tablet, 800 MG PO Q8H PRN for PAIN-MILD Prescribed by: MARYCRUZ CASTRO on 06/24/19 1328 Sulfamethoxazole/Trimethoprim (Bactrim Ds Tablet) 1 Each Tablet, 1 EACH PO BID Prescribed by: JAMIR HAMLIN on 08/25/21 0754 [Benzocaine/Menthol] 56 ML AEROSOL, 56 ML TP UD PRN for PAIN- SEE INSTRUCTIONS Prescribed by: NILAM AVINA on 02/11/19 1534 Review of Systems Review of Systems Constitutional: no symptoms reported Musculoskeletal: joint pain Skin: lesions Psychiatric/Neurological: No Symptoms Reported All Other Systems Reviewed Negative Unless Noted: Yes Past Yzgiduu-Jcpjnn-Otlfpv Hx Patient Social History Tobacco Use?: Yes Tobacco type used: Cigarettes Smoking Status: Current Everyday Smoker Use of E-Cig and/or Vaping dev: No Substance use?: No Alcohol Use?: No Immunizations Up To Date Tetanus Booster (TDap): Unknown First/Initial COVID19 Vaccinat: Not currently vaccinated Seasonal Allergies Seasonal Allergies: No Past Medical History Surgeries: Yes Tubal Ligation Respiratory: Yes Asthma Cardiac: No Neurological: No SUPERVISOR SHIPPING History: Tubal Ligation Genitourinary: No Gastrointestinal: No Musculoskeletal: No Endocrine: No HEENT: No Cancer: No Psychosocial: No Integumentary: No Blood Disorders: No Adverse Reaction/Blood Tranf: No Family Medical History Patient reports no known family medical history. Physical Exam Vital Signs Capillary Refill : General Appearance: WD/WN, no apparent distress Extremities: other (Dorsal surface of left ring finger with approximate 1 x 1 cm area of erythema with central area of lesions draining clear material but no induration. There is warmth and tenderness to palpation. The finger is not circumferentially swollen and there is no tenderness along the flexor sheath. She is able to flex and extend her finger with no difficulty or significant pain .) Skin: warm/dry, other (No purulence or induration to wound) Progress/Results/Core Measures Progress Progress Note : Progress Note Based off the patient's description of her having a burning sensation a day before blistering wounds started I suspect this is most likely herpetic sultana however I suspect there is now a secondary cellulitis. There is no abscess or fluid collection on exam. I will treat her with acyclovir and Bactrim and told her to have this wound rechecked by her primary care provider within 2 to 3 days and come back to emergency department sooner with worsening pain fevers or other general concerns. Patient aware and agreeable with plan and verbalized understanding of the above instructions. 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 Referrals: SELF,TIAN PEREZ (PCP/Family) Primary Care Physician Patient Instructions: Herpetic Sultana (DC) Add. Discharge Instructions: ELEVATE WOUND, IBUPROFEN AND TYLENOL FOR PAIN. IMMOBILIZE FINGER. All discharge instructions reviewed with patient and/or family. Voiced understanding. Scripts Sulfamethoxazole/Trimethoprim (Bactrim Ds Tablet) 1 Each Tablet 1 EACH PO BID for 7 Days, #14 TAB Prov: JAMIR HAMLIN DO 08/25/21 Acyclovir (Acyclovir) 800 Mg Tablet 800 MG PO BID for 7 Days, #14 TAB Prov: JAMIR HAMLIN DO 08/25/21 JAMIR HAMLIN DO Aug 25, 2021 07:54
== END 2021-08-25 08:05 | disposition home or self-care (01) ==
LOC: EDUNIT# 07:26 → ER FS 07:28
DX: L03.022 Acute lymphangitis of left finger (principal); L03.114 Cellulitis of left upper limb; J45.909 Unspecified asthma, uncomplicated; F17.210 Nicotine dependence, cigarettes, uncomplicated
CPT/HCPCS: 99282